=== PATIENT | male | born 1950 | race African-American/Black ===

== ENCOUNTER 2017-02-22 13:43 | Emergency (ER) | payer SELFPAY ==
[2017-02-22 14:14] LABS: APPEARANCE CLOUDY (CLEAR); BASOPHILS 0.1 % (0-2); EOSINOPHILS 1.1 % (0-7); HEMATOCRIT 41.6 % (42.0-54.0); HEMOGLOBIN 14.1 g/dL (13.5-17.5); IMMATURE GRANULOCYTES 0.4 % (0-5); LYMPHOCYTES 10.6 % (15-50); MCH 29.7 pg (26.0-34.0); MCHC 33.9 g/dL (31.0-37.0); MCV 87.8 fL (80.0-100.0); MEAN PLATELET VOLUME 9.6 fL (7.4-10.4); MONOCYTES 6.8 % (2-11); PLATELET COUNT 191 10x3/uL (130-400); RBC 4.74 10x6/uL (4.20-6.10); RDW 13.4 % (11.5-14.5)
[2017-02-22 14:15] LABS: BILIRUBIN NEGATIVE (NEGATIVE); GLUCOSE NEGATIVE (NEGATIVE); KETONE NEGATIVE (NEGATIVE); LEUKOCYTE ESTERASE 2+ (NEGATIVE); NITRITE NEGATIVE (NEGATIVE); PROTEIN 2+ mg/dL (NEGATIVE); SPECIFIC GRAVITY 1.015 (1.005-1.020); UROBILINOGEN NORMAL (NORMAL)
[2017-02-22 14:17] LABS: WHITE CELLS - URINE >50 /hpf (0-5)
[2017-02-22 14:19] LABS: BACTERIA FEW /hpf (NONE SEEN); EPITHELIAL CELLS NSEEN /hpf (0-5); RED CELLS - URINE 0-5 /hpf (0-5)
[2017-02-22 14:25] LABS: ALBUMIN 3.5 g/dL (3.4-5.0); ALKALINE PHOSPHATASE 85 U/L (46-116); ALT (SGPT) 49 U/L (10-68); BILIRUBIN - TOTAL 1.03 mg/dL (0.2-1.3); CALC OSMOLALITY 276 mosm/kg (275-300); CALCIUM 9.2 mg/dL (8.5-10.1); CARBON DIOXIDE 23.5 mmol/L (21.0-32.0); CHLORIDE - SERUM 104 mmol/L (98-107); GLUCOSE 106 mg/dL (74-106); POTASSIUM - SERUM 3.9 mmol/L (3.5-5.1); SODIUM 139 mmol/L (136-145); UREA NITROGEN 10 mg/dL (7-18); eGFR NON AFRICAN AMERICAN 80 mL/min (90-120)
== END 2017-02-22 16:15 | disposition home or self-care (01) ==
LOC: D.ER 13:43
PROVIDERS: Emergency Medicine
DX: N39.0 Urinary tract infection, site not specified (principal); F17.200 Nicotine dependence, unspecified, uncomplicated

== ENCOUNTER → 2018-04-06 08:27 | Outpatient (CLI) | payer MEDICARE, MEDICAID | END | disposition home or self-care (01) | LOC: D.MRI 08:27 | DX: M54.12 Radiculopathy, cervical region (principal); M96.1 Postlaminectomy syndrome, not elsewhere classified; M25.561 Pain in right knee ==

== ENCOUNTER → 2018-06-13 15:15 | Outpatient (CLI) | payer MEDICARE, MEDICAID | END | disposition home or self-care (01) | LOC: D.MRI 15:15 | DX: M48.061 Spinal stenosis, lumbar region without neurogenic claudication (principal); M47.14 Other spondylosis with myelopathy, thoracic region ==

== ENCOUNTER → 2018-06-16 15:14 | Outpatient (CLI) | payer MEDICARE, MEDICAID | END | disposition home or self-care (01) | LOC: D.MRI 15:14 | DX: M48.061 Spinal stenosis, lumbar region without neurogenic claudication (principal); M47.14 Other spondylosis with myelopathy, thoracic region ==

== ENCOUNTER 2019-04-26 08:35 | Day surgery (SDC) | payer MEDICARE, MEDICAID ==
[2019-04-24 15:41] LABS: HEMATOCRIT 44.2 % (42.0-54.0); MCH 29.3 pg (26.0-34.0); MCHC 33.9 g/dL (31.0-37.0); MCV 86.3 fL (80.0-100.0); MEAN PLATELET VOLUME 9.3 fL (7.4-10.4); RBC 5.12 10x6/uL (4.20-6.10); RDW 13.8 % (11.5-14.5); WBC 7.3 10x3/uL (4.8-10.8)
[2019-04-24 16:25] LABS: ANION GAP 9.1 mmol/L (8-16); BILIRUBIN - TOTAL 0.93 mg/dL (0.2-1.3); CREATININE - SERUM 1.1 mg/dL (0.6-1.3); POTASSIUM - SERUM 4.1 mmol/L (3.5-5.1); PROTEIN - SERUM 7.5 g/dL (6.4-8.2)
[2019-04-24 16:53] LABS: APTT 28.9 SECONDS (22.8-39.4); PROTIME 12.8 SECONDS (11.6-15.0)
[~2019-04-26] VITALS: Ht 180.3 cm; Wt 94.3 kg
[~2019-04-26 08:35] MED LIST: EPCLUSA 400 MG1 EACH PO; FLOMAX0.4 MG PO; MOBIC7.5 MG PO; NORVASC5 MG PO; ZANAFLEX4 MG PO
[2019-04-26] MEDS ORDERED: XALATAN 0.0052.5 ML EACH EYE (09:06)
[2019-04-26 09:09] VITALS: BP 144/97; Ht 180.3 cm; Wt 94.3 kg
--- NOTE | 2019-04-26 11:37 | NUR ---
2ND TIME OUT DONE WITH DR. DALTON IN ROOM
[2019-04-26] MEDS ORDERED: HYDROCODON-ACE1 EAC7 PO (12:13)
--- NOTE | 2019-04-26 13:08 | NUR ---
1257-REC'D FROM RR. ALERT AND AWAKE,DENIES COMPLAINTS.VSS. DRESSING TO LLE CDI. IV PATENT TO LEFT ARM AT KVO.CL IN EASY REACH. FULL LIQUID TRAY TO ROOM
--- NOTE | 2019-04-26 14:19 | OP ---
PATIENT NAME: SAMARA GERMAIN MEDICAL RECORD: [id number] :52 LOCATION:D.[facility] ADMISSION DATE: SURGEON: BOO DALTON MD DATE OF OPERATION: 04/26/2019 SURGEON: Boo Dalton MD ANESTHESIA: General anesthesia by Amina Huang CRNA. DIAGNOSIS: Obstructive BPH. PSA is 1.42. IPSS is 27 and quality of life score is 6 with Flomax. ILA shows a 30-gram prostate. PROCEDURE: UroLift times 6 units deployed, 3 held in position. FINDINGS: Cystoscopy shows an asymmetrically enlarged left lateral lobe that is causing obstruction. There is minimal right lateral lobe enlargement. There is no median lobe. The bladder was heavily trabeculated with cellules and diverticula. No bladder tumors were seen. Single ureteral orifices bilaterally. BLOOD LOSS: Minimal. CLINICAL HISTORY: This is a 68-year-old male, who has had a longstanding history of obstructive BPH. He has been on Flomax for many years. The Flomax has side effects including causing dizziness and retrograde ejaculation. It is also starting to affect his memory. He has significant voiding symptoms. He comes today to have the UroLift procedure done. At the same time, he has a large lipoma on his right leg that Dr. Calderon will be excising. Dr. Calderon actually proceeded first. The patient had already been under general anesthesia. DESCRIPTION OF PROCEDURE: He was placed into lithotomy position and reprepped and redraped. The UroLift scope was introduced. The obstruction was primarily from a massively enlarged left lateral lobe, which crosses over the midline and meets to the right side. Going in with the UroLift device, the first implant was placed at the left anterolateral sulcus near the bladder neck. This was placed 1.5 cm distal to the bladder neck. Another unit was placed at the left anterolateral sulcus near the verumontanum. This new one initially hit bone and we had to fire a third unit in this verumontanum level on the left side. This one finally did stay. Looking in, there was still some obstruction near the bladder neck on the right side. I attempted to place units here 1.5 cm distal to the bladder neck on the right side. Two more units had misfire issues and finally the last unit worked. As a result, the patient has 2 implants on the left side and 1 implant on the right side. The urethra is wide open. I left the bladder partly full for voiding trial today. I will see the patient in followup in 2-4 weeks. TRANSINT:[id number] Voice Confirmation ID: [id number] DOCUMENT ID: [id number] OPERATIVE REPORT [id number] SAMARA GERMAIN ROBERT S MD at 1419 CC: [id number] DICTATION DATE: 04/26/19 1220 DOOR INSTALLER: 04/26/19 1238 [facility] [address] [place] [address]
--- NOTE | 2019-04-26 14:22 | NUR ---
1350-DISCHARGE CRITERIA MET.REVIEWED PAPERWORK WITH PT AND NIECE. VERBALIZED UNDERSTANDING WITH NO QUESTIONS OR CONCERNS. DRESSING TO LLE CDI. STABLE CONDITION. ESCORTED OUT VIA W/C BY VOLUNTEER. NIECE TO DRIVE HOME
--- NOTE | 2019-05-01 10:07 | OP ---
PATIENT NAME: SAMARA GERMAIN MEDICAL RECORD: [id number] :52 LOCATION:D.[facility] ADMISSION DATE: SURGEON: SANTOS LO MD DATE OF OPERATION: 04/26/2019 PREOPERATIVE DIAGNOSES: 1. Right lower extremity lipoma. 2. Hypertension. POSTOPERATIVE DIAGNOSES: 1. Right lower extremity lipoma. 2. Hypertension. PROCEDURE: Excision of 4 cm right lower extremity lipoma. SURGEON: Santos Lo MD REPORT OF PROCEDURE: A longitudinal incision was made on the medial aspect just below the knee on the right lower extremity overlying a 4 cm soft tissue mass. Electrocautery was used to dissect through the subcutaneous tissues and we encountered this fatty mass consistent with a lipoma. This was completely excised by taking down the thin adhesions that were present using blunt dissection and electrocautery. Once we had the mass completely out, we inspected the area and any bleeding sources that were found were treated with electrocautery. We irrigated out the wound with normal saline and then infused 10 mL of 0.25% Marcaine with epinephrine. The subcutaneous tissues were reapproximated with interrupted 3-0 Vicryl and the skin was closed with running subcutaneous 5-0 Monocryl. COMPLICATIONS: None. CONDITION: Stable. ANESTHESIA: General endotracheal and local. BLOOD LOSS: Minimal. TRANSINT:[id number] Voice Confirmation ID: [id number] DOCUMENT ID: [id number] SANTOS LO MD at 1007 CC: [id number] DICTATION DATE: 04/26/19 121 [employer] [facility] [employer]IST: 04/26/19 1218 [facility] 04/26/[address] [address]
== END 2019-04-26 13:50 | disposition home or self-care (01) ==
LOC: D.OPS 08:35 → D.PAN 10:45 → D.OPS 10:45
PROVIDERS: Anesthesiology; ATTEND Surgery
DX: D17.23 Benign lipomatous neoplasm of skin and subcutaneous tissue of right leg (principal); I10 Essential (primary) hypertension; N40.1 Benign prostatic hyperplasia with lower urinary tract symptoms; N13.8 Other obstructive and reflux uropathy; N32.89 Other specified disorders of bladder; Z01.812 Encounter for preprocedural laboratory examination
CPT/HCPCS: 11404; 12032; C9740